=== PATIENT | female | born 1960 | race Caucasian/White ===

== ENCOUNTER 2016-10-15 14:29 | Emergency (ER) | payer OTHER ==
[~2016-10-15] VITALS: Ht 162.6 cm; Wt 61.7 kg
[~2016-10-15 14:29] MED LIST: IBUP-1480 PO
[2016-10-15 14:30] VITALS: BP_SYST 112
[2016-10-15] MEDS ORDERED: ERYTHROMYCIN 0.5% EYE OINT 3.5 GM OP ONE (16:00)
[2016-10-15] MEDS ORDERED: ACETAMINOPHEN 500 MG TABLET PO ONE (16:00)
[2016-10-15 16:42] VITALS: BP_SYST 131
== END 2016-10-15 16:15 | disposition home or self-care (01) ==
LOC: SED 14:29
DX: H10.33 Unspecified acute conjunctivitis, bilateral (principal); B96.89 Other specified bacterial agents as the cause of diseases classified elsewhere; J44.9 Chronic obstructive pulmonary disease, unspecified; I10 Essential (primary) hypertension
CPT/HCPCS: 99283

== ENCOUNTER 2016-12-21 14:48 | Emergency (ER) | payer OTHER ==
[~2016-12-21] VITALS: Ht 162.6 cm; Wt 62.6 kg
[2016-12-21 14:53] VITALS: BP_SYST 127
[2016-12-21] MEDS ORDERED: LISI2.5T48 PO (14:57)
[2016-12-21] MEDS ORDERED: CARV6.2554 PO (14:57)
[2016-12-21] MEDS ORDERED: ASPI-862 PO (14:57)
--- NOTE | 2016-12-21 15:00 | NUR ---
Patient to ER bed 4 to gown for evaluation. Side rails up. Report given to Betty RAM.
--- NOTE | 2016-12-21 15:20 | NUR ---
Lorraine Dueñas [employer] CLERK at bedside examining patient
[2016-12-21] MEDS ORDERED: KETOROLAC TROMETHAMINE 60 MG/2 ML VIAL IM ONE (15:45)
[2016-12-21 16:13] VITALS: BP_SYST 120
--- NOTE | 2016-12-21 16:14 | NUR ---
Patient given written and verbal discharge instructions and verbalizes understanding. ER MD discussed with patient the results and treatment provided. Patient in stable condition. ID arm band removed. Rx of Aspirin,lisinopril, Ketoconazole and Coreg given. Patient educated on pain management and to follow up with PMD. Pain Scale 0/10 . Opportunity for questions provided and answered.
== END 2016-12-21 16:13 | disposition home or self-care (01) ==
LOC: SED 14:48
DX: Z76.0 Encounter for issue of repeat prescription (principal); B37.2 Candidiasis of skin and nail; I10 Essential (primary) hypertension; J44.9 Chronic obstructive pulmonary disease, unspecified; Z95.9 Presence of cardiac and vascular implant and graft, unspecified
CPT/HCPCS: 96372; 99283; J1885

== ENCOUNTER → 2017-05-02 | Emergency (ER) | payer OTHER ==
[~2017-05-02] VITALS: Ht 157.5 cm; Wt 66.2 kg
[~2017-05-02] MED LIST changes: +ASPI-862 PO; +CARV6.2554 PO; +LISI2.5T48 PO
[2017-05-02 13:25] VITALS: BP_SYST 133
== END | disposition still patient (30) ==
LOC: SED 13:01
DX: Z76.0 Encounter for issue of repeat prescription (principal); J44.9 Chronic obstructive pulmonary disease, unspecified; I10 Essential (primary) hypertension; Z87.891 Personal history of nicotine dependence; Z86.59 Personal history of other mental and behavioral disorders; Z79.82 Long term (current) use of aspirin; Z95.0 Presence of cardiac pacemaker
CPT/HCPCS: 99283

== ENCOUNTER 2017-11-30 16:33 | Emergency (ER) | payer OTHER ==
[~2017-11-30] VITALS: Ht 160 cm; Wt 58.1 kg
[2017-11-30 16:42] VITALS: BP_SYST 144
[2017-11-30] MEDS ORDERED: KETOROLAC TROMETHAMINE 30 MG VIAL IM ONE (16:45)
[2017-11-30 17:29] VITALS: BP_SYST 131
== END 2017-11-30 17:28 | disposition home or self-care (01) ==
LOC: SED 16:33
DX: M79.642 Pain in left hand (principal); J44.9 Chronic obstructive pulmonary disease, unspecified; I10 Essential (primary) hypertension; Z88.4 Allergy status to anesthetic agent; Z88.2 Allergy status to sulfonamides; Z79.82 Long term (current) use of aspirin; Z79.899 Other long term (current) drug therapy
CPT/HCPCS: 29125; 73130; 96372; 99284; J1885

== ENCOUNTER 2018-07-31 16:37 | Emergency (ER) | payer OTHER ==
[~2018-07-31] VITALS: Ht 160 cm; Wt 54.0 kg
[~2018-07-31 16:37] MED LIST changes: -IBUP-1480 PO; +IBUP-1971 PO
[2018-07-31 17:00] VITALS: BP_SYST 129
[2018-07-31 19:15] VITALS: BP_SYST 129
== END 2018-07-31 19:15 | disposition home or self-care (01) ==
LOC: SED 16:37
DX: G89.29 Other chronic pain (principal); M79.662 Pain in left lower leg; I10 Essential (primary) hypertension; J44.9 Chronic obstructive pulmonary disease, unspecified; Z86.79 Personal history of other diseases of the circulatory system; Z88.2 Allergy status to sulfonamides; Z88.6 Allergy status to analgesic agent; Z79.82 Long term (current) use of aspirin; Z79.899 Other long term (current) drug therapy
CPT/HCPCS: 99283

== ENCOUNTER 2020-03-21 14:27 | Emergency (ER) | payer OTHER ==
[~2020-03-21] VITALS: Ht 157.5 cm; Wt 53.5 kg
[2020-03-21 14:33] VITALS: BP_SYST 139
[2020-03-21] MEDS: cefTRIAXone 1 GM in LIDOCAINE 1%, 20 ML MDV 2.1 ML IM ONE (15:38)
[2020-03-21 15:48] VITALS: BP_SYST 139
== END 2020-03-21 15:46 | disposition home or self-care (01) ==
LOC: SED 14:27
DX: L03.113 Cellulitis of right upper limb (principal); L50.9 Urticaria, unspecified; J44.9 Chronic obstructive pulmonary disease, unspecified; I10 Essential (primary) hypertension; Z86.73 Personal history of transient ischemic attack (TIA), and cerebral infarction without residual deficits; Z79.899 Other long term (current) drug therapy; Z88.2 Allergy status to sulfonamides; Z88.6 Allergy status to analgesic agent
CPT/HCPCS: 96372; 99283; J0696; J2001

== ENCOUNTER 2020-09-20 15:01 | Emergency (ER) | payer OTHER ==
[~2020-09-20] VITALS: Ht 157.5 cm; Wt 59.0 kg
[2020-09-20 15:12] VITALS: BP_SYST 152
[2020-09-20] MEDS ORDERED: IBUPROFEN 800 MG TABLET PO ONE (15:15)
[2020-09-20] MEDS ORDERED: traMADol HCL HCL 50 MG TABLET (ULTRAM) PO ONE (15:15)
[2020-09-20 15:40] LABS: BASOPHILS # (AUTO) 0.1 K/uL (0.0-0.2); BASOPHILS % (AUTO) 0.8 % (0.0-2.0); EOSINOPHILS # (AUTO) 0.2 K/uL (0.0-0.4); EOSINOPHILS % (AUTO) 3.1 % (0.0-4.0); HEMATOCRIT 38.1 % (36-48); HEMOGLOBIN 12.5 g/dL (12.0-16.0); LYMPHOCYTES % (AUTO) 30.7 % (20.5-51.5); MEAN CORPUSCULAR HEMOGLOBIN 29 pg (27-31); MEAN CORPUSCULAR HGB CONC 33 % (32-36); MEAN CORPUSCULAR VOLUME 89 fL (79.0-98.0); MONOCYTES # (AUTO) 0.5 K/uL (0.0-1.0); MONOCYTES % (AUTO) 7.2 % (1.7-9.3); NEUTROPHILS # (AUTO) 3.7 K/uL (1.8-7.7); NEUTROPHILS % (AUTO) 58.2 % (40.0-70.0); PLATELET COUNT (AUTO) 218 K/uL (130-430); RED CELL DISTRIBUTION WIDTH 13.8 % (9.0-15.0); WHITE BLOOD COUNT (AUTO) 6.3 K/uL (4.8-10.8)
[2020-09-20 15:48] LABS: CALCIUM 8.8 mg/dL (8.4-11.0); CREATININE 0.83 mg/dL (0.55-1.30); GLUCOSE 99 mg/dL (70-99); POTASSIUM 3.7 mmol/L (3.5-5.1); UREA NITROGEN, BLOOD 16 mg/dL (8-21)
[2020-09-20 15:51] LABS: PROTHROMBIN TIME 9.9 SECS (9.5-12.5)
[2020-09-20 15:53] LABS: ALANINE AMINOTRANSFERASE 24 U/L (12-78); ALBUMIN 3.7 g/dL (3.4-4.8); ASPARTATE AMINOTRANSFERASE 16 U/L (10-37); C-REACTIVE PROTEIN QUANT < 0.2 mg/dL (0-0.5); TOTAL BILIRUBIN 0.4 mg/dL (0.0-1.0); URIC ACID 4.8 mg/dL (2.4-7.0)
[2020-09-20 15:55] LABS: GFR AFRICAN AMERICAN 90 mL/min (>90)
[2020-09-20 15:56] LABS: ANION GAP 10 (5-15); CHLORIDE 103 mmol/L (98-107); SODIUM SERUM 137 mmol/L (136-145)
[2020-09-20 16:35] VITALS: BP_SYST 148
== END 2020-09-20 16:35 | disposition home or self-care (01) ==
LOC: SED 15:01
DX: M25.562 Pain in left knee (principal); J44.9 Chronic obstructive pulmonary disease, unspecified; I10 Essential (primary) hypertension; Z79.899 Other long term (current) drug therapy; Z88.6 Allergy status to analgesic agent; Z88.2 Allergy status to sulfonamides; W18.39XA Other fall on same level, initial encounter; Y93.89 Activity, other specified; Y92.89 Other specified places as the place of occurrence of the external cause; Y99.8 Other external cause status
CPT/HCPCS: 36415; 73560-TC; 80053; 84550-TC; 85025; 85610-TC; 85730-TC; 86140; 99284

== ENCOUNTER 2022-05-04 11:09 | Emergency (ER) | payer MEDICAID, OTHER ==
[~2022-05-04] VITALS: Ht 160 cm; Wt 74.8 kg
[2022-05-04 11:21] VITALS: BP_SYST 161
--- NOTE | 2022-05-04 11:30 | NUR ---
Patient triaged and placed in waiting room. VSS and patient appears in no acute distress at this time. Accompanied by SELF, awaiting available bed, and MD notified of need for MSE.
--- NOTE | 2022-05-04 11:50 | NUR ---
ER DR. CHAVEZ EXAMINING PT IN TRIAGE
[2022-05-04] MEDS ORDERED: ASPI-862 PO (12:14)
[2022-05-04] MEDS ORDERED: CARV6.2554 PO (12:14)
[2022-05-04] MEDS ORDERED: LISI2.5T48 PO (12:14)
[2022-05-04] MEDS ORDERED: IBUP-1971 PO (12:14)
[2022-05-04] MEDS ORDERED: LISINOPRIL 10 MG TABLET (PRINIVIL) PO ONE (12:30)
[2022-05-04 12:45] VITALS: BP_SYST 161
--- NOTE | 2022-05-04 12:45 | NUR ---
Patient given written and verbal discharge instructions and verbalizes understanding. ER MD discussed with patient the results and treatment provided. Patient in stable condition. ID arm band removed. Rx of LISINOPRIL, COREG, IBUPROFEN AND ASA given. Patient educated on pain management and to follow up with PMD. Pain Scale 0/10. Opportunity for questions provided and answered. Medication side effect fact sheet provided.
[2022-05-04] MEDS ORDERED: ALBMDI INH (13:07)
== END 2022-05-04 12:45 | disposition home or self-care (01) ==
LOC: SED 11:09
DX: I10 Essential (primary) hypertension (principal); J44.9 Chronic obstructive pulmonary disease, unspecified; J45.909 Unspecified asthma, uncomplicated; Z88.2 Allergy status to sulfonamides; Z88.6 Allergy status to analgesic agent; Z79.899 Other long term (current) drug therapy
CPT/HCPCS: 99281

== ENCOUNTER 2022-12-27 15:31 | Emergency (ER) | payer MEDICAID ==
[~2022-12-27] VITALS: Ht 160 cm; Wt 56.7 kg
[~2022-12-27 15:31] MED LIST changes: +ALBMDI INH
[2022-12-27 16:00] VITALS: BP_SYST 137; PULSE 83; RESP 18; TEMP 97.1; O2SAT 96
--- NOTE | 2022-12-27 16:05 | NUR ---
Patient to ER bed 5 to gown for evaluation. Side rails up. Report given to RODOLFO RAM.
--- NOTE | 2022-12-27 16:10 | NUR ---
PT BIB FRIEND AWAKE AND ALERT AOX4, NO SOB OR DISTRESS. PT C/O HIVE AND RASH TO FACE, TRUNK, LOWER EXTREMITIES BILATERLLY. PT DENIES N/V. PT STATED ITS BEEN ITCHING FOR ALMOST 2 WEEKS. PT HAS HX OF HTN, PACEMAKER, HERNIA, DM2, AND HLD. O2 SAT AY 98% RA. PT LEFT EYE IS RED AND SLIGHTLY SWOLLEN. PT DENIES VISION DIFFICULTY.
[2022-12-27] MEDS ORDERED: predniSONE 20 MG TABLET PO ONE (16:15)
[2022-12-27] MEDS ORDERED: DIPHENHYDRAMINE INJ 50 MG/ML VIAL IM ONE (16:15)
--- NOTE | 2022-12-27 16:16 | NUR ---
ER at bedside examining patient.
[2022-12-27] MEDS ORDERED: PRED50TA PO (17:46)
[2022-12-27] MEDS ORDERED: CETI-80 PO (17:46)
[2022-12-27] MEDS ORDERED: PERM60CR18 TP (17:46)
--- NOTE | 2022-12-27 18:01 | NUR ---
Patient given written and verbal discharge instructions and verbalizes understanding. ER MD DR CHAVEZ discussed with patient the results and treatment provided. Patient in stable condition. ID arm band removed. Rx of ZYRTEC, ACTICIN, PREDNISONE given. Patient educated on pain management and to follow up with PMD. Pain Scale 0/10. Opportunity for questions provided and answered. Medication side effect fact sheet provided.
[2022-12-27 18:03] VITALS: BP_SYST 135; PULSE 74; RESP 17; TEMP 97.3; O2SAT 97
== END 2022-12-27 18:03 | disposition home or self-care (01) ==
LOC: SED 15:31
DX: L50.9 Urticaria, unspecified (principal); R21 Rash and other nonspecific skin eruption; J45.909 Unspecified asthma, uncomplicated; I10 Essential (primary) hypertension; Z88.2 Allergy status to sulfonamides; Z88.5 Allergy status to narcotic agent; Z79.899 Other long term (current) drug therapy
CPT/HCPCS: 99283; 96372; J7512; J1200

== ENCOUNTER 2023-01-03 16:07 | Emergency (ER) | payer MEDICAID ==
[~2023-01-03] VITALS: Ht 160 cm; Wt 63.5 kg
[~2023-01-03 16:07] MED LIST changes: +CETI-80 PO; +PERM60CR18 TP; +PRED50TA PO
[2023-01-03 16:10] VITALS: BP_SYST 112; PULSE 71; RESP 17; TEMP 98.5; O2SAT 98
[2023-01-03] MEDS ORDERED: LIDOCAINE 1%, 20 ML MDV 20 ML ONE (18:04)
[2023-01-03] MEDS ORDERED: VANCOMYCIN HCL 1,000 MG in NS 250 ML IV ONE (18:30)
[2023-01-03] MEDS ORDERED: VANCOMYCIN HCL 1000 MG/VIAL IV ONE (18:45)
[2023-01-03 19:20] VITALS: TEMP 98.5
[2023-01-03] MEDS ORDERED: NAPR-1172 PO (21:21)
[2023-01-03] MEDS ORDERED: CEPH-548 PO (21:21)
[2023-01-03] MEDS ORDERED: SULF1TAB48 PO (21:21)
[2023-01-03 21:25] VITALS: BP_SYST 159; PULSE 75; RESP 18; O2SAT 95
== END 2023-01-03 21:25 | disposition home or self-care (01) ==
LOC: SED 16:07
DX: H00.034 Abscess of left upper eyelid (principal); H02.844 Edema of left upper eyelid; J44.9 Chronic obstructive pulmonary disease, unspecified; I10 Essential (primary) hypertension; Z88.2 Allergy status to sulfonamides; Z88.5 Allergy status to narcotic agent; Z85.038 Personal history of other malignant neoplasm of large intestine; Z79.899 Other long term (current) drug therapy
CPT/HCPCS: 99284; 67700; 96365; 96366; 87040; 36415; J2001; J3370

== ENCOUNTER 2023-03-31 22:30 | Emergency (ER) | payer MEDICAID ==
[~2023-03-31] VITALS: Ht 160 cm; Wt 70.3 kg
[~2023-03-31 22:30] MED LIST changes: +CEPH-548 PO; +NAPR-1172 PO; +SULF1TAB48 PO
[2023-03-31 22:59] VITALS: BP_SYST 167; PULSE 82; RESP 18; TEMP 98.3; O2SAT 97
[2023-04-01] MEDS ORDERED: DIPHENHYDRAMINE HCL 25 MG CAPSULE PO ONE (00:30)
[2023-04-01] MEDS ORDERED: predniSONE 20 MG TABLET PO ONE (00:30)
[2023-04-01] MEDS ORDERED: DIPH25CA83 PO (00:33)
[2023-04-01] MEDS ORDERED: CEPH-548 PO (00:33)
[2023-04-01 01:10] VITALS: BP_SYST 154; PULSE 84; RESP 18; TEMP 98.3; O2SAT 97
== END 2023-04-01 01:10 | disposition home or self-care (01) ==
LOC: SED 22:30
DX: L03.211 Cellulitis of face (principal); R21 Rash and other nonspecific skin eruption; J44.9 Chronic obstructive pulmonary disease, unspecified; I10 Essential (primary) hypertension; Z88.2 Allergy status to sulfonamides; Z88.5 Allergy status to narcotic agent; Z79.899 Other long term (current) drug therapy
CPT/HCPCS: 99283; Q0163; J7512

== ENCOUNTER 2023-05-15 21:14 | Emergency (ER) | payer MEDICAID ==
[~2023-05-15] VITALS: Ht 160 cm; Wt 63.5 kg
[~2023-05-15 21:14] MED LIST changes: +DIPH25CA83 PO
[2023-05-15 21:57] VITALS: BP_SYST 159; PULSE 86; RESP 20; TEMP 98.3; O2SAT 98
[2023-05-15 23:58] LABS: INFLUENZA TYPE A Negative (NEGATIVE)
[2023-05-16] LABS: COVID19 ANTIGEN SOFIA FIA POSITIVE (NEGATIVE)
[2023-05-16 00:01] LABS: INFLUENZA TYPE B POSITIVE (NEGATIVE)
[2023-05-16] MEDS ORDERED: LIDOCAINE 1% 10 MG/ML, 20 ML MDV INJ ONE (01:15)
[2023-05-16] MEDS ORDERED: ACETAMINOPHEN 325 MG TABLET ONE (02:07)
[2023-05-16] MEDS ORDERED: OSEL75CA PO (02:14)
[2023-05-16] MEDS ORDERED: HYDR-3698 PO (02:14)
[2023-05-16] MEDS ORDERED: CLIN300C3 PO (02:14)
[2023-05-16] MEDS ORDERED: ACETAMINOPHEN 325 MG TABLET PO ONE (02:45)
== END 2023-05-16 02:34 | disposition home or self-care (01) ==
LOC: SED 21:14
DX: U07.1 COVID-19 (principal); J10.1 Influenza due to other identified influenza virus with other respiratory manifestations; L02.01 Cutaneous abscess of face; I10 Essential (primary) hypertension; J44.9 Chronic obstructive pulmonary disease, unspecified; J45.909 Unspecified asthma, uncomplicated; Z88.2 Allergy status to sulfonamides; Z88.5 Allergy status to narcotic agent; Z79.899 Other long term (current) drug therapy; Z79.82 Long term (current) use of aspirin
CPT/HCPCS: 99284; 10060; 71046; 87426; 87070; 36415; 87804 ×2; J2001; 87186-TC

== ENCOUNTER 2023-07-18 18:10 | Emergency (ER) | payer MEDICARE, MEDICAID ==
[~2023-07-18] VITALS: Ht 157.5 cm; Wt 56.7 kg
[~2023-07-18 18:10] MED LIST changes: +CLIN300C3 PO; +HYDR-3698 PO; +OSEL75CA PO
[2023-07-18 18:58] VITALS: BP_SYST 139; PULSE 106; RESP 18; TEMP 98.6; O2SAT 97
[2023-07-18] MEDS: LIDOCAINE 1% 10 MG/ML, 20 ML MDV INJ ONE (19:15)
[2023-07-18] MEDS ORDERED: IBUP-1969 PO (20:39)
[2023-07-18] MEDS ORDERED: CLIN-142 PO (20:39)
[2023-07-18] MEDS ORDERED: BACITRACIN 1 GM OINT TP ONE (20:45)
[2023-07-18] MEDS: DIPHTH,PERTUSS(ACELL),TET VAC 0.5 ML VIAL (Tdap) I.M. ONE (21:00)
[2023-07-18 21:10] VITALS: BP_SYST 139; PULSE 106; RESP 18; TEMP 98.6; O2SAT 97
[2023-07-18] MEDS ORDERED: DIPHTH,PERTUSS(ACELL),TET VAC 0.5 ML VIAL (Tdap) I.M. ONE (21:26)
== END 2023-07-18 21:10 | disposition home or self-care (01) ==
LOC: SED 18:10
DX: H00.031 Abscess of right upper eyelid (principal); J44.9 Chronic obstructive pulmonary disease, unspecified; I10 Essential (primary) hypertension; Z88.2 Allergy status to sulfonamides; Z88.5 Allergy status to narcotic agent; Z79.899 Other long term (current) drug therapy
CPT/HCPCS: 90715; 99284; J2001

== ENCOUNTER 2023-11-03 00:46 | Inpatient (IN) | payer MEDICAID, MEDICARE ==
[2023-11-03] VITALS (21 sets, daily range): BP systolic 67–148; PULSE 70–157; RESP 15–29; TEMP 95.2–99.4; O2SAT 90–100
[~2023-11-03] VITALS: Ht 160 cm; Wt 67.1 kg
[~2023-11-03 00:46] MED LIST changes: +CLIN-142 PO; +IBUP-1969 PO
[2023-11-03] MEDS: NACL 0.9% 1,000 ML IV ONE (01:41)
[2023-11-03] MEDS: SODIUM BICARBONATE 8.4% JECT 50 MEQ/50 ML SYRINGE IVP ONE ×2 (01:43→15:57)
[2023-11-03] MEDS: ONDANSETRON HCL 4 MG/2 ML VIAL IVP ONE (01:57)
[2023-11-03] MEDS: KETOROLAC TROMETHAMINE 30 MG VIAL IVP ONE (02:00)
[2023-11-03 02:08] LABS: BILIRUBIN,URINE NEGATIVE (NEGATIVE); CLARITY/URINE CLEAR (CLEAR); COLOR,URINE YELLOW (YELLOW); GLUCOSE,URINE NEGATIVE (NEGATIVE); KETONES,URINE NEGATIVE (NEGATIVE); LEUKOCYTE ESTERASE ,URINE NEGATIVE (NEGATIVE); NITRITE, URINE NEGATIVE (NEGATIVE); PROTEIN URINE 2+ (NEGATIVE); UROBILINOGEN,URINE 0.2 (0.2-1.0)
[2023-11-03 02:10] LABS: BLOOD, URINE TRACE (NEGATIVE)
[2023-11-03 02:29] LABS: WBC,URINE 0-3 /HPF (0-3)
[2023-11-03 02:30] LABS: BACTERIA,URINE RARE /HPF (None Seen)
[2023-11-03 02:32] LABS: BARBITURATE, URINE NEGATIVE (NEG <=200); BENZODIAZEPINE, URINE NEGATIVE (NEG <=150); COCAINE, URINE NEGATIVE (NEG <=150); METHAMPHETAMINES SCREEN,URINE POSITIVE (NEG <=500); PHENCYCLIDINE SCREEN,URINE POSITIVE (NEG <=25); URINE AMPHETAMINE POSITIVE (NEG <=500); URINE METHADONE NEGATIVE (NEG <=200)
[2023-11-03 02:33] LABS: CANNABINOID, URINE NEGATIVE (NEG <=50); OPIATE, URINE NEGATIVE (NEG <=100); UR TRICYCLIC ANTIDEPRESSANTS NEGATIVE (NEG <=300); URINE OXYCODONE SCREEN NEGATIVE (NEG <=100)
[2023-11-03 02:36] LABS: ALANINE AMINOTRANSFERASE 59 U/L (12-78); ALBUMIN 3.2 g/dL (3.4-4.8); ANION GAP 16 (5-15); ASPARTATE AMINOTRANSFERASE 40 U/L (10-37); CALCIUM 8.6 mg/dL (8.4-11.0); CARBON DIOXIDE 20 mmol/L (23-29); CHLORIDE 102 mmol/L (98-107); CREATININE 0.92 mg/dL (0.55-1.30); GFR AFRICAN AMERICAN 79 mL/min (>90); GLUCOSE 159 mg/dL (74-106); POTASSIUM 3.1 mmol/L (3.5-5.1); SODIUM SERUM 138 mmol/L (136-145); TOTAL BILIRUBIN 0.9 mg/dL (0.0-1.0); TOTAL PROTEIN, SERUM 7.4 g/dL (6.4-8.3); UREA NITROGEN, BLOOD 26 mg/dL (8-21)
[2023-11-03 02:39] LABS: GFR NON AFRICAN-AMERICAN 65 mL/min (>90)
[2023-11-03 02:40] LABS: BASOPHILS # (AUTO) 0.2 K/uL (0.0-0.2); BASOPHILS % (AUTO) 2.7 % (0.0-2.0); EOSINOPHILS # (AUTO) 0.1 K/uL (0.0-0.4); EOSINOPHILS % (AUTO) 1.5 % (0.0-4.0); HEMOGLOBIN 11.8 g/dL (12.0-16.0); LYMPHOCYTES # (AUTO) 1.8 K/uL (1.0-5.5); LYMPHOCYTES % (AUTO) 22.9 % (20.5-51.5); MEAN CORPUSCULAR HEMOGLOBIN 27 pg (27-31); MEAN CORPUSCULAR HGB CONC 33 % (32-36); MEAN CORPUSCULAR VOLUME 84 fL (79.0-98.0); MONOCYTES # (AUTO) 0.4 K/uL (0.0-1.0); MONOCYTES % (AUTO) 5.6 % (1.7-9.3); NEUTROPHILS # (AUTO) 5.2 K/uL (1.8-7.7); NEUTROPHILS % (AUTO) 67.3 % (40.0-70.0); PLATELET COUNT (AUTO) 191 K/uL (130-430); RED BLOOD CELL COUNT(AUTO) 4.31 MIL/uL (4.2-6.2); RED CELL DISTRIBUTION WIDTH 16.1 % (9.0-15.0); WHITE BLOOD COUNT (AUTO) 7.8 K/uL (4.8-10.8)
[2023-11-03 02:45] LABS: BILIRUBIN,DIRECT 0.2 mg/dL (0.0-0.3)
[2023-11-03] MEDS: LABETALOL HCL 20 MG/4 ML CARTRIDGE IVP ONE (03:32)
[2023-11-03] MEDS ORDERED: LORA10TA7 PO (06:01)
[2023-11-03] MEDS ORDERED: POTA-197 PO (06:01)
[2023-11-03] MEDS ORDERED: FURO20TA4 PO (06:01)
[2023-11-03] MEDS ORDERED: SACU1TAB PO (06:01)
[2023-11-03] MEDS ORDERED: ASPI-1393 PO (06:01)
[2023-11-03] MEDS ORDERED: CARV3.1246 PO (06:01)
[2023-11-03] MEDS ORDERED: ATOR20TA64 PO (06:01)
[2023-11-03] MEDS ORDERED: HYDROcodone/ACETAMIN 10-325 MG TAB ONE (08:41)
[2023-11-03] MEDS: HYDROcodone/ACETAMIN 10-325 MG TAB PO PRN (08:47)
[2023-11-03] MEDS ORDERED: ADENOSINE 6MG/2ML VIAL ONE ×2 (09:06→09:15)
[2023-11-03] MEDS: ADENOSINE 6MG/2ML VIAL IVP ONE ×2 (09:12→09:15)
[2023-11-03] MEDS: AMIODARONE HCL 150 MG in D5W 100 ML IV ONE (10:19)
[2023-11-03] MEDS: AMIODARONE HCL 450 MG in D5W 241 ML IV SCH (10:40)
[2023-11-03] MEDS ORDERED: ACETAMINOPHEN 325 MG TABLET PO SCH (11:00)
[2023-11-03] MEDS ORDERED: LORazepam 2 MG/ML VIAL ONE (11:22)
[2023-11-03] MEDS: LORazepam 2 MG/ML VIAL IVP PRN (11:24)
[2023-11-03] MEDS: HALOPERIDOL LACTATE 5 MG/ML VIAL IVP PRN (14:15)
[2023-11-03 14:28] LABS: ABG O2 SAT% ESTIMATE 93.6 % (94.0-100.0); BLOOD GAS PCO2 26.7 mmHg (35.0-45.0); BLOOD GAS PH 7.357 (7.350-7.450); BLOOD GAS PO2 69.2 mmHg (75.0-100.0)
[2023-11-03 14:37] LABS: BLOOD GAS HCO3 14.6 mmol/L (21.0-27.0)
[2023-11-03 14:38] LABS: ALLEN'S TEST POSITIVE (P)
[2023-11-03] MEDS: DEXTROSE 50% JECT 50 ML DISP.SYRIN ONE (16:30)
[2023-11-03] MEDS ORDERED: DEXTROSE 50% JECT 50 ML DISP.SYRIN IVP PRN (16:30)
[2023-11-03] MEDS: DEXTROSE 50% JECT 50 ML DISP.SYRIN IVP ONE (16:31)
[2023-11-03 16:59] LABS: ABG O2 SAT% ESTIMATE 93.9 % (94.0-100.0); BLOOD GAS PCO2 27.4 mmHg (35.0-45.0); BLOOD GAS PH 7.333 (7.350-7.450); BLOOD GAS PO2 72.3 mmHg (75.0-100.0)
[2023-11-03 17:01] LABS: BLOOD GAS BASE EXCESS -9.9 mmol/L (-3.0-3.0); BLOOD GAS HCO3 14.2 mmol/L (21.0-27.0)
[2023-11-03] MEDS: D5W 1,000 ML IV ONE (17:01)
[2023-11-03 17:02] LABS: ALLEN'S TEST POSITIVE (P)
[2023-11-03] MEDS ORDERED: ACETAMINOPHEN 325 MG TABLET PO PRN (17:45)
[2023-11-03] MEDS ORDERED: LORATADINE 10 MG TABLET PO PRN (17:45)
[2023-11-03] MEDS: PHENYLEPHRINE HCL 100 MG in NS 240 ML IV PRN (17:56)
[2023-11-03] MEDS: CARVEDILOL 6.25 MG TABLET (COREG) PO SCH (21:00)
[2023-11-03] MEDS: SACUBITRIL/VALSARTAN 24 MG-26 MG 1 TABLET PO SCH (21:00)
[2023-11-03] MEDS: FUROSEMIDE 20 MG TABLET PO SCH (21:06)
[2023-11-03] MEDS: ATORVASTATIN 20 MG TABLET PO SCH (21:07)
[2023-11-04] VITALS (24 sets, daily range): BP systolic 79–128; PULSE 62–111; RESP 12–49; TEMP 98–99.3; O2SAT 89–100
[2023-11-04 04:51] LABS: BASOPHILS % (AUTO) 0.2 % (0.0-2.0); HEMATOCRIT 37.1 % (36-48); HEMOGLOBIN 11.9 g/dL (12.0-16.0); LYMPHOCYTES # (AUTO) 0.6 K/uL (1.0-5.5); LYMPHOCYTES % (AUTO) 2.9 % (20.5-51.5); MEAN CORPUSCULAR HEMOGLOBIN 28 pg (27-31); MEAN CORPUSCULAR HGB CONC 32 % (32-36); MEAN CORPUSCULAR VOLUME 86 fL (79.0-98.0); MONOCYTES # (AUTO) 0.8 K/uL (0.0-1.0); MONOCYTES % (AUTO) 4.1 % (1.7-9.3); NEUTROPHILS # (AUTO) 18.2 K/uL (1.8-7.7); NEUTROPHILS % (AUTO) 92.8 % (40.0-70.0); PLATELET COUNT (AUTO) 126 K/uL (130-430); RED CELL DISTRIBUTION WIDTH 16.6 % (9.0-15.0); WHITE BLOOD COUNT (AUTO) 19.6 K/uL (4.8-10.8)
[2023-11-04 05:35] LABS: ALANINE AMINOTRANSFERASE 4216 U/L (12-78); ALBUMIN 2.4 g/dL (3.4-4.8); ANION GAP 16 (5-15); ASPARTATE AMINOTRANSFERASE < 5 U/L (10-37); CARBON DIOXIDE 21 mmol/L (23-29); CHLORIDE 100 mmol/L (98-107); CREATININE 2.33 mg/dL (0.55-1.30); GFR AFRICAN AMERICAN 27 mL/min (>90); GLUCOSE 102 mg/dL (74-106); PHOSPHORUS 8.1 mg/dL (2.7-4.5); POTASSIUM 4.3 mmol/L (3.5-5.1); SODIUM SERUM 137 mmol/L (136-145); TOTAL BILIRUBIN 4.9 mg/dL (0.0-1.0); TOTAL PROTEIN, SERUM 5.8 g/dL (6.4-8.3); UREA NITROGEN, BLOOD 41 mg/dL (8-21)
[2023-11-04 05:45] LABS: GFR NON AFRICAN-AMERICAN 22 mL/min (>90)
[2023-11-04 05:48] LABS: CALCIUM 6.8 mg/dL (8.4-11.0)
[2023-11-04] MEDS: CALCIUM GLUC 2 GM/100ML-NACL 100 ML IV ONE (07:54)
[2023-11-04] MEDS: POTASSIUM CHLORIDE 20 MEQ TABLET.ER PO SCH (08:32)
[2023-11-04] MEDS: ASPIRIN 325 MG TABLET (ECOTRIN) PO SCH (08:36)
[2023-11-04 17:02] LABS: INR 2.8 (0.8-1.2); PROTHROMBIN TIME 27.5 SECS (9.5-12.5)
[2023-11-04] MEDS: D5W 1,000 ML IV SCH (20:00)
[2023-11-04] MEDS: PIPERACILLIN/TAZO 4.5 GM in D5W 100 ML IV SCH (20:49)
[2023-11-05] VITALS (32 sets, daily range): BP systolic 101–139; PULSE 59–78; RESP 14–27; TEMP 97.9–98.5; O2SAT 92–99
[2023-11-05 05:39] LABS: BASOPHILS % (AUTO) 0.2 % (0.0-2.0); EOSINOPHILS % (AUTO) 0.1 % (0.0-4.0); HEMATOCRIT 36.2 % (36-48); HEMOGLOBIN 11.8 g/dL (12.0-16.0); LYMPHOCYTES # (AUTO) 1.5 K/uL (1.0-5.5); LYMPHOCYTES % (AUTO) 10.4 % (20.5-51.5); MEAN CORPUSCULAR HEMOGLOBIN 28 pg (27-31); MEAN CORPUSCULAR HGB CONC 33 % (32-36); MEAN CORPUSCULAR VOLUME 85 fL (79.0-98.0); MONOCYTES # (AUTO) 0.7 K/uL (0.0-1.0); MONOCYTES % (AUTO) 4.8 % (1.7-9.3); NEUTROPHILS # (AUTO) 12.1 K/uL (1.8-7.7); NEUTROPHILS % (AUTO) 84.5 % (40.0-70.0); PLATELET COUNT (AUTO) 113 K/uL (130-430); RED BLOOD CELL COUNT(AUTO) 4.27 MIL/uL (4.2-6.2); RED CELL DISTRIBUTION WIDTH 16.3 % (9.0-15.0); WHITE BLOOD COUNT (AUTO) 14.3 K/uL (4.8-10.8)
[2023-11-05 05:47] LABS: ERYTHROCYTE SEDIMENTATION RATE 1 MM/HR (0-20)
[2023-11-05 06:03] LABS: CREATININE 3.35 mg/dL (0.55-1.30); PHOSPHORUS 6.7 mg/dL (2.7-4.5); POTASSIUM 4.3 mmol/L (3.5-5.1)
[2023-11-05 06:08] LABS: CALCIUM 6.8 mg/dL (8.4-11.0)
[2023-11-05] MEDS: CALCIUM GLUC 2 GM/100ML-NACL 100 ML IV ONE (08:49)
[2023-11-06] VITALS (13 sets, daily range): BP systolic 98–157; PULSE 52–64; RESP 14–19; TEMP 97.5–98; O2SAT 2–100
[2023-11-06 06:12] LABS: BASOPHILS % (AUTO) 0.3 % (0.0-2.0); EOSINOPHILS # (AUTO) 0.1 K/uL (0.0-0.4); HEMATOCRIT 35.9 % (36-48); HEMOGLOBIN 12.1 g/dL (12.0-16.0); LYMPHOCYTES # (AUTO) 0.9 K/uL (1.0-5.5); LYMPHOCYTES % (AUTO) 8.9 % (20.5-51.5); MEAN CORPUSCULAR HEMOGLOBIN 28 pg (27-31); MEAN CORPUSCULAR HGB CONC 34 % (32-36); MEAN CORPUSCULAR VOLUME 83 fL (79.0-98.0); MONOCYTES # (AUTO) 0.5 K/uL (0.0-1.0); MONOCYTES % (AUTO) 4.5 % (1.7-9.3); NEUTROPHILS # (AUTO) 8.7 K/uL (1.8-7.7); NEUTROPHILS % (AUTO) 85.3 % (40.0-70.0); PLATELET COUNT (AUTO) 113 K/uL (130-430); RED BLOOD CELL COUNT(AUTO) 4.34 MIL/uL (4.2-6.2); RED CELL DISTRIBUTION WIDTH 16.2 % (9.0-15.0); WHITE BLOOD COUNT (AUTO) 10.2 K/uL (4.8-10.8)
[2023-11-06 06:15] LABS: CALCIUM 7.4 mg/dL (8.4-11.0); CREATININE 3.03 mg/dL (0.55-1.30); PHOSPHORUS 5.1 mg/dL (2.7-4.5); POTASSIUM 3.1 mmol/L (3.5-5.1)
[2023-11-06 06:25] LABS: ERYTHROCYTE SEDIMENTATION RATE 2 MM/HR (0-20)
[2023-11-06] MEDS: POTASSIUM CHLORIDE 20 MEQ TABLET.ER PO ONE (10:00)
[2023-11-06] MEDS: METOPROLOL SUCCINATE 25 MG TAB.SR.24H (TOPROL XL) PO ONE (12:04)
[2023-11-06] MEDS: CALCIUM GLUC 2 GM/100ML-NACL 100 ML IV ONE (12:05)
[2023-11-06] MEDS ORDERED: COMMUNICATION ORDER XX PRN (15:30)
[2023-11-06] MEDS: ENOXAPARIN SODIUM 80 MG/0.8 ML SYRINGE SUBCUT SCH (16:28)
[2023-11-06] MEDS: CEFEPIME 1 GM in D5W 50 ML IV SCH (16:29)
[2023-11-06 18:15] LABS: CHLORIDE,URINE RANDOM 85 mmol/L (55-125)
[2023-11-07 00:28] VITALS: BP_SYST 158; PULSE 56; RESP 16; TEMP 96.5; O2SAT 99
[2023-11-07] MEDS: LORazepam 2 MG/ML VIAL IVP PRN (03:35)
[2023-11-07 05:21] LABS: BASOPHILS % (AUTO) 0.6 % (0.0-2.0); EOSINOPHILS # (AUTO) 0.1 K/uL (0.0-0.4); EOSINOPHILS % (AUTO) 0.9 % (0.0-4.0); HEMATOCRIT 39.3 % (36-48); HEMOGLOBIN 13.1 g/dL (12.0-16.0); LYMPHOCYTES % (AUTO) 13.2 % (20.5-51.5); MEAN CORPUSCULAR HEMOGLOBIN 28 pg (27-31); MEAN CORPUSCULAR HGB CONC 33 % (32-36); MEAN CORPUSCULAR VOLUME 83 fL (79.0-98.0); MONOCYTES # (AUTO) 0.7 K/uL (0.0-1.0); MONOCYTES % (AUTO) 9.9 % (1.7-9.3); NEUTROPHILS # (AUTO) 5.5 K/uL (1.8-7.7); NEUTROPHILS % (AUTO) 75.4 % (40.0-70.0); PLATELET COUNT (AUTO) 126 K/uL (130-430); RED BLOOD CELL COUNT(AUTO) 4.73 MIL/uL (4.2-6.2); RED CELL DISTRIBUTION WIDTH 16.4 % (9.0-15.0); WHITE BLOOD COUNT (AUTO) 7.3 K/uL (4.8-10.8)
[2023-11-07 05:25] LABS: ERYTHROCYTE SEDIMENTATION RATE 12 MM/HR (0-20)
[2023-11-07 06:02] LABS: ALBUMIN 2.3 g/dL (3.4-4.8); CALCIUM 8.4 mg/dL (8.4-11.0); CREATININE 2.28 mg/dL (0.55-1.30); PHOSPHORUS 3.9 mg/dL (2.7-4.5); POTASSIUM 3.1 mmol/L (3.5-5.1); TOTAL BILIRUBIN 2.9 mg/dL (0.0-1.0); TOTAL PROTEIN, SERUM 6.3 g/dL (6.4-8.3)
[2023-11-07 08:02] VITALS: BP_SYST 150; PULSE 67; RESP 16; TEMP 97.9; O2SAT 96
[2023-11-07] MEDS: METOPROLOL SUCCINATE 25 MG TAB.SR.24H (TOPROL XL) PO SCH (08:27)
[2023-11-07 10:36] VITALS: O2SAT 96
[2023-11-07 12:40] VITALS: BP_SYST 117; PULSE 75; RESP 18; TEMP 98.7; O2SAT 95
[2023-11-07] MEDS: POTASSIUM CHLORIDE 20 MEQ TABLET.ER PO ONE (12:41)
[2023-11-07 16:17] VITALS: BP_SYST 130; PULSE 83; RESP 17; TEMP 97.9; O2SAT 92
[2023-11-07 20:00] VITALS: BP_SYST 132; PULSE 76; RESP 18; TEMP 98.6; O2SAT 93
[2023-11-08] VITALS: BP_SYST 144; PULSE 72; RESP 18; TEMP 97.6; O2SAT 94
[2023-11-08 05:24] LABS: BASOPHILS % (AUTO) 0.6 % (0.0-2.0); EOSINOPHILS # (AUTO) 0.2 K/uL (0.0-0.4); EOSINOPHILS % (AUTO) 2.4 % (0.0-4.0); HEMATOCRIT 43.5 % (36-48); HEMOGLOBIN 14.6 g/dL (12.0-16.0); LYMPHOCYTES # (AUTO) 1.7 K/uL (1.0-5.5); LYMPHOCYTES % (AUTO) 22.9 % (20.5-51.5); MEAN CORPUSCULAR HEMOGLOBIN 28 pg (27-31); MEAN CORPUSCULAR HGB CONC 34 % (32-36); MEAN CORPUSCULAR VOLUME 83 fL (79.0-98.0); MONOCYTES # (AUTO) 0.9 K/uL (0.0-1.0); MONOCYTES % (AUTO) 12.1 % (1.7-9.3); NEUTROPHILS # (AUTO) 4.5 K/uL (1.8-7.7); PLATELET COUNT (AUTO) 160 K/uL (130-430); RED BLOOD CELL COUNT(AUTO) 5.25 MIL/uL (4.2-6.2); RED CELL DISTRIBUTION WIDTH 16.2 % (9.0-15.0); WHITE BLOOD COUNT (AUTO) 7.3 K/uL (4.8-10.8)
[2023-11-08 05:34] LABS: ERYTHROCYTE SEDIMENTATION RATE 46 MM/HR (0-20)
[2023-11-08 05:38] LABS: INR 1.3 (0.8-1.2); PROTHROMBIN TIME 13.4 SECS (9.5-12.5)
[2023-11-08 06:09] LABS: ALBUMIN 2.8 g/dL (3.4-4.8); CALCIUM 8.8 mg/dL (8.4-11.0); CREATININE 1.35 mg/dL (0.55-1.30); PHOSPHORUS 3.3 mg/dL (2.7-4.5); POTASSIUM 3.2 mmol/L (3.5-5.1); TOTAL BILIRUBIN 2.9 mg/dL (0.0-1.0); TOTAL PROTEIN, SERUM 7.4 g/dL (6.4-8.3)
[2023-11-08 08:00] VITALS: BP_SYST 166; PULSE 82; RESP 18; TEMP 97.5; O2SAT 98
[2023-11-08] MEDS: HYDROcodone/ACETAMIN 5-325 MG TAB (NORCO/ VICODIN) PO PRN (09:06)
[2023-11-08] MEDS: POTASSIUM CHLORIDE 20 MEQ TABLET.ER PO ONE (10:43)
[2023-11-08] MEDS: MAGNESIUM SULFATE 50 ML IV ONE (10:45)
[2023-11-08 12:40] VITALS: BP_SYST 137; PULSE 73; RESP 16; TEMP 97.9; O2SAT 92
[2023-11-08 17:05] VITALS: BP_SYST 128; PULSE 75; RESP 18; TEMP 97.7; O2SAT 95
[2023-11-08 20:15] VITALS: BP_SYST 113; PULSE 70; RESP 18; TEMP 98.2; O2SAT 97
[2023-11-09 00:30] VITALS: BP_SYST 134; PULSE 71; RESP 18; TEMP 98.2; O2SAT 96
[2023-11-09] MEDS: KETOROLAC TROMETHAMINE 15 MG VIAL IVP ONE (05:46)
[2023-11-09 05:52] LABS: BASOPHILS % (AUTO) 0.7 % (0.0-2.0); EOSINOPHILS # (AUTO) 0.2 K/uL (0.0-0.4); EOSINOPHILS % (AUTO) 2.9 % (0.0-4.0); HEMATOCRIT 42.9 % (36-48); HEMOGLOBIN 14.2 g/dL (12.0-16.0); LYMPHOCYTES # (AUTO) 1.4 K/uL (1.0-5.5); LYMPHOCYTES % (AUTO) 23.3 % (20.5-51.5); MEAN CORPUSCULAR HEMOGLOBIN 27 pg (27-31); MEAN CORPUSCULAR HGB CONC 33 % (32-36); MEAN CORPUSCULAR VOLUME 83 fL (79.0-98.0); MONOCYTES # (AUTO) 1.2 K/uL (0.0-1.0); MONOCYTES % (AUTO) 20.1 % (1.7-9.3); NEUTROPHILS # (AUTO) 3.2 K/uL (1.8-7.7); PLATELET COUNT (AUTO) 140 K/uL (130-430); RED CELL DISTRIBUTION WIDTH 15.9 % (9.0-15.0); WHITE BLOOD COUNT (AUTO) 6.1 K/uL (4.8-10.8)
[2023-11-09 05:59] LABS: ERYTHROCYTE SEDIMENTATION RATE 38 MM/HR (0-20)
[2023-11-09 07:57] LABS: ALBUMIN 2.6 g/dL (3.4-4.8); CALCIUM 8.2 mg/dL (8.4-11.0); CREATININE 1.17 mg/dL (0.55-1.30); POTASSIUM 3.1 mmol/L (3.5-5.1); TOTAL BILIRUBIN 2.2 mg/dL (0.0-1.0); TOTAL PROTEIN, SERUM 7.1 g/dL (6.4-8.3)
[2023-11-09 08:00] VITALS: BP_SYST 140; PULSE 70; RESP 20; TEMP 97.8; O2SAT 96
[2023-11-09 08:05] VITALS: BP_SYST 134; PULSE 71; O2SAT 96
[2023-11-09 08:06] LABS: ALPHA-1-ANTITRYPSIN, S 254 mg/dL (101-187)
[2023-11-09 09:08] LABS: PHOSPHORUS 3.4 mg/dL (2.7-4.5)
[2023-11-09 11:08] LABS: HEPATITIS A AB, IgM Negative (Negative); HEPATITIS B CORE AB, IgM Negative (Negative); HEPATITIS B SURFACE AG Negative (Negative); HEPATITIS C VIRUS AB Non Reactive (Non Reactive)
[2023-11-09] MEDS: POTASSIUM CHLORIDE 20 MEQ TABLET.ER PO ONE (11:55)
[2023-11-09 12:06] LABS: ANTI NUCLEAR AB WITH REFLEX Negative (Negative)
[2023-11-09 12:21] VITALS: BP_SYST 132; PULSE 74; RESP 17; TEMP 97.4; O2SAT 97
[2023-11-09] MEDS: NORMAL SALINE 5 ML DISP.SYRIN IVF SCH (14:18)
[2023-11-09 18:20] VITALS: BP_SYST 133; PULSE 72; RESP 18; TEMP 97.5; O2SAT 96
[2023-11-09 20:00] VITALS: BP_SYST 123; PULSE 84; RESP 20; TEMP 98; O2SAT 96; O2SAT 98
[2023-11-10] VITALS (8 sets, daily range): BP systolic 108–129; PULSE 70–78; RESP 15–18; TEMP 96–98.1; O2SAT 95–96
[2023-11-10 05:16] LABS: BASOPHILS % (AUTO) 0.7 % (0.0-2.0); EOSINOPHILS # (AUTO) 0.2 K/uL (0.0-0.4); EOSINOPHILS % (AUTO) 2.8 % (0.0-4.0); HEMATOCRIT 42.2 % (36-48); HEMOGLOBIN 14.1 g/dL (12.0-16.0); LYMPHOCYTES % (AUTO) 29.2 % (20.5-51.5); MEAN CORPUSCULAR HEMOGLOBIN 28 pg (27-31); MEAN CORPUSCULAR HGB CONC 33 % (32-36); MEAN CORPUSCULAR VOLUME 82 fL (79.0-98.0); MONOCYTES # (AUTO) 1.2 K/uL (0.0-1.0); MONOCYTES % (AUTO) 18.3 % (1.7-9.3); NEUTROPHILS # (AUTO) 3.3 K/uL (1.8-7.7); PLATELET COUNT (AUTO) 134 K/uL (130-430); RED BLOOD CELL COUNT(AUTO) 5.12 MIL/uL (4.2-6.2); RED CELL DISTRIBUTION WIDTH 15.9 % (9.0-15.0); WHITE BLOOD COUNT (AUTO) 6.8 K/uL (4.8-10.8)
[2023-11-10 05:27] LABS: ERYTHROCYTE SEDIMENTATION RATE 40 MM/HR (0-20)
[2023-11-10 05:41] LABS: CALCIUM 8.5 mg/dL (8.4-11.0); CREATININE 1.15 mg/dL (0.55-1.30); POTASSIUM 3.8 mmol/L (3.5-5.1)
[2023-11-11 01:06] VITALS: BP_SYST 133; PULSE 71; RESP 15; TEMP 97.1; O2SAT 97
[2023-11-11 04:56] LABS: BASOPHILS % (AUTO) 0.8 % (0.0-2.0); EOSINOPHILS # (AUTO) 0.2 K/uL (0.0-0.4); EOSINOPHILS % (AUTO) 2.8 % (0.0-4.0); HEMATOCRIT 37.6 % (36-48); HEMOGLOBIN 12.5 g/dL (12.0-16.0); LYMPHOCYTES # (AUTO) 1.7 K/uL (1.0-5.5); LYMPHOCYTES % (AUTO) 29.7 % (20.5-51.5); MEAN CORPUSCULAR HEMOGLOBIN 27 pg (27-31); MEAN CORPUSCULAR HGB CONC 33 % (32-36); MEAN CORPUSCULAR VOLUME 83 fL (79.0-98.0); MONOCYTES # (AUTO) 1.1 K/uL (0.0-1.0); MONOCYTES % (AUTO) 18.5 % (1.7-9.3); NEUTROPHILS # (AUTO) 2.8 K/uL (1.8-7.7); NEUTROPHILS % (AUTO) 48.2 % (40.0-70.0); PLATELET COUNT (AUTO) 134 K/uL (130-430); RED BLOOD CELL COUNT(AUTO) 4.56 MIL/uL (4.2-6.2); WHITE BLOOD COUNT (AUTO) 5.8 K/uL (4.8-10.8)
[2023-11-11 05:03] LABS: ERYTHROCYTE SEDIMENTATION RATE 32 MM/HR (0-20)
[2023-11-11 05:24] LABS: ALBUMIN 2.4 g/dL (3.4-4.8); CALCIUM 8.3 mg/dL (8.4-11.0); CREATININE 1.01 mg/dL (0.55-1.30); POTASSIUM 3.8 mmol/L (3.5-5.1); TOTAL BILIRUBIN 1.4 mg/dL (0.0-1.0); TOTAL PROTEIN, SERUM 6.5 g/dL (6.4-8.3)
[2023-11-11 07:34] VITALS: O2SAT 96
[2023-11-11 08:07] VITALS: BP_SYST 140; PULSE 57; RESP 18; TEMP 98.2; O2SAT 95
[2023-11-11 12:28] VITALS: BP_SYST 139; PULSE 71; RESP 18; O2SAT 97
[2023-11-11] MEDS: CALCIUM GLUC 2 GM/100ML-NACL 100 ML IV ONE (13:03)
[2023-11-11] MEDS: ONDANSETRON HCL 4 MG/2 ML VIAL IVP PRN (14:12)
[2023-11-11 16:06] VITALS: BP_SYST 140; PULSE 70; RESP 20; TEMP 98.7; O2SAT 98
[2023-11-11 20:00] VITALS: BP_SYST 142; PULSE 69; RESP 18; TEMP 99; O2SAT 99
[2023-11-12 00:39] VITALS: BP_SYST 135; PULSE 65; RESP 18; TEMP 98; O2SAT 98
[2023-11-12] MEDS: ACETAMINOPHEN 325 MG TABLET PO PRN (02:24)
[2023-11-12 06:12] LABS: ERYTHROCYTE SEDIMENTATION RATE 38 MM/HR (0-20)
[2023-11-12 06:23] LABS: BASOPHILS # (AUTO) 0.1 K/uL (0.0-0.2); BASOPHILS % (AUTO) 0.9 % (0.0-2.0); EOSINOPHILS # (AUTO) 0.2 K/uL (0.0-0.4); EOSINOPHILS % (AUTO) 2.3 % (0.0-4.0); HEMOGLOBIN 12.5 g/dL (12.0-16.0); LYMPHOCYTES # (AUTO) 1.6 K/uL (1.0-5.5); LYMPHOCYTES % (AUTO) 23.8 % (20.5-51.5); MEAN CORPUSCULAR HEMOGLOBIN 27 pg (27-31); MEAN CORPUSCULAR HGB CONC 33 % (32-36); MEAN CORPUSCULAR VOLUME 83 fL (79.0-98.0); MONOCYTES # (AUTO) 1.3 K/uL (0.0-1.0); MONOCYTES % (AUTO) 19.9 % (1.7-9.3); NEUTROPHILS # (AUTO) 3.6 K/uL (1.8-7.7); NEUTROPHILS % (AUTO) 53.1 % (40.0-70.0); PLATELET COUNT (AUTO) 124 K/uL (130-430); RED CELL DISTRIBUTION WIDTH 15.7 % (9.0-15.0); WHITE BLOOD COUNT (AUTO) 6.7 K/uL (4.8-10.8)
[2023-11-12 06:52] LABS: CALCIUM 8.5 mg/dL (8.4-11.0); CREATININE 0.95 mg/dL (0.55-1.30); POTASSIUM 3.5 mmol/L (3.5-5.1)
[2023-11-12 08:00] VITALS: BP_SYST 139; PULSE 81; RESP 18; TEMP 98.1; O2SAT 96
[2023-11-12 11:00] VITALS: BP_SYST 140; PULSE 69; RESP 18; TEMP 99; O2SAT 99
[2023-11-12 20:00] VITALS: BP_SYST 145; PULSE 83; RESP 18; TEMP 98.4; O2SAT 99
[2023-11-13] VITALS: BP_SYST 138; PULSE 77; RESP 18; TEMP 98; O2SAT 98
[2023-11-13 07:26] LABS: CALCIUM 8.5 mg/dL (8.4-11.0); CREATININE 0.7 mg/dL (0.55-1.30); POTASSIUM 3.5 mmol/L (3.5-5.1)
[2023-11-13 07:29] LABS: BASOPHILS # (AUTO) 0.1 K/uL (0.0-0.2); BASOPHILS % (AUTO) 0.6 % (0.0-2.0); EOSINOPHILS # (AUTO) 0.1 K/uL (0.0-0.4); HEMATOCRIT 37.9 % (36-48); HEMOGLOBIN 12.6 g/dL (12.0-16.0); LYMPHOCYTES # (AUTO) 1.6 K/uL (1.0-5.5); LYMPHOCYTES % (AUTO) 18.7 % (20.5-51.5); MEAN CORPUSCULAR HEMOGLOBIN 27 pg (27-31); MEAN CORPUSCULAR HGB CONC 33 % (32-36); MEAN CORPUSCULAR VOLUME 82 fL (79.0-98.0); MONOCYTES # (AUTO) 1.6 K/uL (0.0-1.0); MONOCYTES % (AUTO) 18.7 % (1.7-9.3); NEUTROPHILS # (AUTO) 5.2 K/uL (1.8-7.7); PLATELET COUNT (AUTO) 137 K/uL (130-430); RED BLOOD CELL COUNT(AUTO) 4.62 MIL/uL (4.2-6.2); RED CELL DISTRIBUTION WIDTH 16.1 % (9.0-15.0)
[2023-11-13 07:43] LABS: ERYTHROCYTE SEDIMENTATION RATE 59 MM/HR (0-20); WHITE BLOOD COUNT (AUTO) 8.6 K/uL (4.8-10.8)
[2023-11-13 07:58] VITALS: BP_SYST 157; PULSE 86; RESP 18; TEMP 98.6; O2SAT 96
[2023-11-13] MEDS ORDERED: METO-304 PO (11:26)
[2023-11-13 12:18] LABS: ALBUMIN 2.6 g/dL (3.4-4.8); BILIRUBIN,DIRECT 0.6 mg/dL (0.0-0.3); TOTAL BILIRUBIN 1.5 mg/dL (0.0-1.0); TOTAL PROTEIN, SERUM 7.1 g/dL (6.4-8.3)
[2023-11-13 12:23] VITALS: BP_SYST 156; PULSE 77; RESP 20; TEMP 99.1; O2SAT 97
[2023-11-13 14:15] VITALS: BP_SYST 157; PULSE 86; RESP 18; TEMP 98.6; O2SAT 96
== END 2023-11-13 15:30 | disposition home health service (06) | DRG 720 ==
LOC: SED 00:46 → STU 04:31 → SIC 09:43 → STU 11-06 16:43 → SMU 11-11 12:00
PROVIDERS: ADMIT Preventive Medicine Preventive Medicine/Occupational Environmental Medicine; ATTEND Preventive Medicine Preventive Medicine/Occupational Environmental Medicine
PROC: 5A09357 Assistance with Respiratory Ventilation, Less than 24 Consecutive Hours, Continuous Positive Airway Pressure (ICD-10-PCS; 2023-11-03)
PROC: 05HY33Z Insertion of Infusion Device into Upper Vein, Percutaneous Approach (ICD-10-PCS; principal; 2023-11-04)
PROC: B54MZZA Ultrasonography of Right Upper Extremity Veins, Guidance (ICD-10-PCS; 2023-11-04)
DX: A41.9 Sepsis, unspecified organism (principal); N17.0 Acute kidney failure with tubular necrosis; J96.20 Acute and chronic respiratory failure, unspecified whether with hypoxia or hypercapnia; K72.00 Acute and subacute hepatic failure without coma; E43 Unspecified severe protein-calorie malnutrition; D68.9 Coagulation defect, unspecified; D69.6 Thrombocytopenia, unspecified; E83.39 Other disorders of phosphorus metabolism; I21.A1 Myocardial infarction type 2; I42.0 Dilated cardiomyopathy; E83.41 Hypermagnesemia; J18.9 Pneumonia, unspecified organism; E83.51 Hypocalcemia; E87.1 Hypo-osmolality and hyponatremia; F14.10 Cocaine abuse, uncomplicated; E87.6 Hypokalemia; J44.0 Chronic obstructive pulmonary disease with (acute) lower respiratory infection; E78.5 Hyperlipidemia, unspecified; D64.9 Anemia, unspecified; I25.10 Atherosclerotic heart disease of native coronary artery without angina pectoris; I10 Essential (primary) hypertension; E88.09 Other disorders of plasma-protein metabolism, not elsewhere classified; E83.52 Hypercalcemia; I48.92 Unspecified atrial flutter; I47.10 Supraventricular tachycardia, unspecified; F15.10 Other stimulant abuse, uncomplicated; Z88.5 Allergy status to narcotic agent; Z88.2 Allergy status to sulfonamides; Z79.899 Other long term (current) drug therapy; Z59.00 Homelessness unspecified; Z95.810 Presence of automatic (implantable) cardiac defibrillator; Z80.0 Family history of malignant neoplasm of digestive organs; Z79.82 Long term (current) use of aspirin; Z68.26 Body mass index [BMI] 26.0-26.9, adult
CPT/HCPCS: 36415; 36600; 71045; 76700; 80048; 80053; 80074; 80076; 80307; 81000; 81001; 81015; 82103; 82140; 82435; 82570; 82803; 82948; 83735; 83880; 84100; 84302; 84484; 85025; 85610; 85651; 85730; 86038; 86777; 86778; 87040; 87070; 87086; 87205; 87497; 93005; 93306; 93971; 94070; 94660; 94760; 97110-GO; 97110-GP; 97116-GP; 97530-GO; 97530-GP; 97535-GO; 99285; G0378; J0153; J0282; J0692; J1630; J1650; J1885; J2060; J2405; J2543; J3475; J7050; J7060